=== PATIENT | male | born 1980 | race Caucasian/White ===

== ENCOUNTER 2020-05-10 19:45 | Emergency (ER) | payer BC, SELFPAY ==
[2020-05-10 19:52] VITALS: BP 165/93; PULSE 110; RESP 15; TEMP 38; O2SAT 100
--- NOTE | 2020-05-10 20:05 | ED.SKABFB ---
HPI - Skin/Abscess/Foreign Bdy General Chief complaint: Skin/Abscess/Foreign Body Stated complaint: abcess on back, fever Time Seen by Provider: 05/10/20 19:53 Source: patient Mode of arrival: ambulatory Limitations: no limitations History of Present Illness HPI narrative: This is a 39 year old male that presents to the ER for abscess on the left upper back present for the last 2 weeks. Reports he has been seen by his primary for this and had it drained. Reports he has been on Bactrim for this. Reports today he spiked a fever which concerned him and prompted him to be seen. Denies cough, congestion, abdominal pain, vomiting, or dysuria. Related Data Home Medications Medication Instructions Recorded Confirmed levocetirizine 5 mg tablet 5 mg PO DAILY 10/18/19 famotidine 20 mg tablet 20 mg PO DAILY 04/28/20 sulfamethoxazole-trimethoprim 05/10/20 Allergies Allergy/AdvReac Type Severity Reaction Status Date / Time No Known Allergies Allergy Unverified 05/10/20 19:57 Review of Systems Review of Systems: Narrative: CONSTITUTIONAL: Reports fever ENT: Denies rhinorrhea, congestion, sore throat RESPIRATORY: Denies cough GASTROINTESTINAL: Denies abdominal pain, nausea, vomiting GENITOURINARY: Denies dysuria or hematuria. SKIN: Reports abscess All systems reviewed & are unremarkable except as noted in HPI and below PMFSH Past Medical History Medical History (Updated 05/10/20 @ 21:48 by Joana Castañeda PA-C) Elevated blood pressure reading Sebaceous cyst Social History Social History Smoking status: Never smoker Second hand tobacco smoke exposure: No Alcohol intake: never Substance use: never Substance use type: does not use Gender identity (if verbalized by the patient): Male Exam Narrative: Exam Narrative: GENERAL: Well-appearing, well-nourished, and in no acute distress. HEAD: Normocephalic, atraumatic. EYES: EOMI. CHEST: Clear to auscultation. No respiratory distress. No wheezes rales or rhonchi HEART: Regular rate and rhythm. No murmur heard. Normal peripheral pulses. BACK: Left upper back with 3cm cystic lesion with mild surrounding redness, small amount of bloody drainage EXTREMITIES: Normal range of motion. No edema. SKIN: Warm, dry, no rash. NEURO: No focal deficits. Alert and oriented x3. PSYCH: Normal mood and affect Course Vital Signs Vital signs: Vital Signs Temperature 100.4 F H 05/10/20 19:52 Pulse Rate 110 H 05/10/20 19:52 Respiratory Rate 15 05/10/20 19:52 Blood Pressure 165/93 H 05/10/20 19:52 Pulse Oximetry 100 05/10/20 19:52 Temperature 100.3 F H 05/10/20 21:14 Pulse Rate 93 05/10/20 21:14 Respiratory Rate 15 05/10/20 21:14 Blood Pressure 134/85 05/10/20 21:14 Pulse Oximetry 98 05/10/20 21:14 Procedures Abscess I/D back: Date of Incision: 05/10/20 Time of Incision: 21:49 Local Anesthetic: lidocaine 1% and with epi Amount of anesthesia used (mL): 3 Technique: incised with #11 blade Packing used?: iodoform I&D Results: Blood and Other (Sebaceous material) MDM - Skin/Abscess/Foreign Bdy MDM Narrative Medical decision making narrative: Patient presents to the ER for cyst on the left upper back that is inflamed. Was drained by PCP 2 weeks ago. Has been on Bactrim since with some improvement. Patient spiked a fever today which prompted him to be seen. Patient with mild temperature of 100.4. He had not taken any antipyretics prior to arrival. Was given Tylenol and ibuprofen in the ED. CBC is without leukocytosis. ESR and CRP are normal. I did incise and drain cyst again. Wound was sent for culture. Patient was instructed to continue his antibiotics and follow-up with his primary on Tuesday. Spoke with on-call primary about work-up. Patient is stable and felt appropriate for further outpatient evaluation. He was given warnings to retur
[2020-05-10 20:22] LABS: Basophils Percent Auto 0.7 % (0.2-1.2); Eosinophils Absolute Auto 0.2 K/mm3 (0-0.3); Eosinophils Percent Auto 3.8 % (0-4.4); Hematocrit 49.4 % (42.0-52.0); Hemoglobin 16.5 g/dL (14.0-18.0); Immature Granulocyte Absolute 0.02 K/mm3 (0.00-0.031); Immature Granulocyte Percent A 0.4 % (0-0.5); Lymphocytes Percent Auto 18.2 % (18.3-44.2); Mean Corpuscular HGB Conc 33.4 g/dl (32-36); Mean Corpuscular Hemoglobin 29.2 pg (26-34); Mean Corpuscular Volume 87.3 fl (80-100); Mean Platelet Volume 11.3 fl (7.4-10.4); Monocytes Absolute Auto 0.6 K/mm3 (0.1-0.6); Monocytes Percent Auto 10.5 % (2.6-8.5); Neutrophils Absolute Auto 3.7 K/mm3 (1.3-6.7); Neutrophils Percent Auto 66.4 % (45.5-73.1); Platelet Count Result 170 k/mm3 (150-375); Red Blood Count 5.66 M/mm3 (4.6-6.20); Red Cell Distribution Width 12.6 % (11.5-14.5); White Blood Count 5.5 K/mm3 (4.5-10.0)
[2020-05-10] MEDS: ACETAMINOPHEN 500 MG TABLET 1000 MG PO (20:24)
[2020-05-10 20:34] LABS: Blood Urea Nitrogen 11 mg/dL (9-20); CRP 1.7 mg/dL (<1.0); Calcium 9.6 mg/dL (8.4-10.2); Carbon Dioxide 28 mmol/L (22-30); Chloride 100 mmol/L (98-107); Estimated CRCL calculation 111 ml/min; Estimated Glomerular Filt Rate > 60; Glucose 104 mg/dL (75-110); Potassium 4.3 mmol/L (3.4-5.0); Sodium 137 mmol/L (137-145)
[2020-05-10 20:54] VITALS: TEMP 37.9
[2020-05-10 21:12] LABS: Erythrocyte Sedimentation Rate 7 mm/hr (0-20)
[2020-05-10 21:14] VITALS: BP 134/85; PULSE 93; RESP 15; TEMP 37.9; O2SAT 98
[2020-05-10] MEDS: IBUPROFEN 600 MG TABLET PO (21:25)
[2020-05-10 21:55] VITALS: TEMP 37.9
[2020-05-10 22:00] VITALS: BP 121/74; PULSE 100; RESP 19; TEMP 37.9; O2SAT 97
== END 2020-05-10 22:00 | disposition home or self-care (01) ==
PROVIDERS: Physician Assistant; Emergency Provider Emergency Medicine; PCP Family Medicine
DX: L03.312 Cellulitis of back [any part except buttock and flank] (principal); L72.3 Sebaceous cyst
CPT/HCPCS: 10061; 36415; 80048; 85025; 85652; 86140; 87070; 87205; 99283; A9270

== ENCOUNTER 2020-12-02 17:01 | Outpatient (NON) | payer BC, SELFPAY | END 2020-12-02 17:02 | LOC: HOME HLTH 17:02 | PROVIDERS: Family Provider Family Medicine; PCP Family Medicine; Visit Provider Nurse Practitioner | DX: L02.91 Cutaneous abscess, unspecified (principal) | CPT/HCPCS: 87070; 87075; 87076; 87205 ==

== ENCOUNTER 2023-03-21 12:13 | Outpatient (NON) | payer OTHER, SELFPAY | END 2023-03-21 12:14 | disposition home or self-care (01) | PROVIDERS: PCP Family Medicine; Visit Provider Nurse Practitioner | DX: D22.5 Melanocytic nevi of trunk (principal) | CPT/HCPCS: 88305 ==

== ENCOUNTER 2023-07-18 12:23 | Outpatient (NON) | payer OTHER, SELFPAY | END 2023-07-18 12:24 | disposition home or self-care (01) | LOC: ANHLAB 07-20 12:25 | PROVIDERS: PCP Family Medicine; Visit Provider Nurse Practitioner | DX: L72.0 Epidermal cyst (principal); L70.0 Acne vulgaris | CPT/HCPCS: 88304 ==

== ENCOUNTER 2023-11-30 14:22 | Emergency (ER) | payer OTHER, SELFPAY ==
--- NOTE | ~2023-11-30 | XR_ITS ---
EXAMINATION: XR foot RT min 3V DATE: 11/30/2023 15:20 INDICATION: Right foot injury. TECHNIQUE: 4 views of right foot were obtained. COMPARISON: None. FINDINGS: Bone alignment is normal. No fracture. There is mild osteoarthritis of first metatarsophala ngeal joint and some of the interphalangeal joints. There are enthesophytes at the posterior and plan tar aspects of calcaneal tuberosity. IMPRESSION: 1. Mild polyarticular osteoarthritis. Reviewed, dictated and finalized at location E. D[facility]GER
--- NOTE | 2023-11-30 14:38 | ED.LOWEXIN ---
HPI - Extremity Injury (Lower) General Chief Complaint: Extremity Injury, Lower Stated Complaint: rt lower extremity injury Time Seen by Provider: 11/30/23 15:00 Source: patient and RN notes reviewed Mode of arrival: ambulatory Limitations: no limitations History of Present Illness HPI Narrative: 43-year-old male presents with concern for injury to the right lower extremity. Reports 1 week ago he hit his 5th right toe door jam. He reports he had pain. Reports he mostly has pain when he is walking on a. Reports he is concerned because the bruising seems to have gotten worse. He denies decreased sensation, strength, range of motion in the foot or digit. MD complaint: foot injury Related Data Allergies Allergy/AdvReac Type Severity Reaction Status Date / Time No Known Allergies Allergy Verified 11/30/23 14:49 Review of Systems Review of Systems: CONSTITUTIONAL: Denies malaise, chills, sweats, or fever. SKIN: Denies rash or itching, open skin, laceration, abrasion, redness, warmth, swelling. MUSCULOSKELETAL: Reports pain and bruising to the 5th digit of the right foot and surrounding the digit NEUROLOGIC: Denies numbness, weakness All systems reviewed & are unremarkable except as noted in HPI and below PMFSH Past Medical History Medical History (Updated 11/30/23 @ 15:32 by Estefani Baires NP) Elevated blood pressure reading Hypertension Sebaceous cyst Surgical History Surgical History History of eye surgery Family History Family History Mother Patient's mother is in good health Father Patient's father is in good health Sibling Patient's sister is in good health Other Cerebrovascular accident Hypertension Social History Social History Smoking status: Never smoker Second hand tobacco smoke exposure: No Alcohol intake: never Alcohol use details: socially Substance use: never Substance use type: does not use Living arrangements: with family Occupation/Education: occupation Gender identity (if verbalized by the patient): Male Spiritual care concerns: No Comments At time of signature, agree with nursing past medical, surgical, social and family history. There is no relevant family history pertinent to the presenting complaint Exam Narrative: GENERAL: Well-appearing, well-nourished, and in no acute distress. HEAD: Normocephalic, atraumatic. EYES: PERRLA, conjunctivae clear NECK: Supple. CHEST: Speaks in full sentences. No respiratory distress. HEART: Regular rate and rhythm. Normal and equal peripheral pulses. EXTREMITIES: Right foot in all digits have grossly normal strength and sensation, grossly normal range of motion. No edema. Ecchymosis noted to the base of the 4th and 5th digits. Normal sensation with sensitivity to light touch and pain. Fifth digit tenderness. No open wounds, no skin tenting, no devitalized tissue or atrophy, no trophic changes, no obvious deformity, alignment normal, nearby joints and structures intact. Distal pulses palpable and equal bilaterally, skin warm, dry, pink. Capillary refill less than 3 seconds. SKIN: Warm, dry, no rash. NEURO: Alert and oriented x3. PSYCH: Normal mood and affect Course Course Emergency Course: Patient is aware of diagnosis, understands and agrees to treatment plan. Anticipatory guidance given. Patient agrees to follow-up as directed and is aware of reasons to seek care at the emergency department. Portions of this record may have been created with voice recognition software Level of Care: Express Care Visit Vital Signs Vital signs: Reviewed. MDM - Extremity Injury (Lower) MDM Narrative Medical decision making narrative: Patients injury and pain is consistent with musculoskeletal etiology. No signs of neurological or vascular compromi
[2023-11-30 14:49] VITALS: BP 146/95; PULSE 93; RESP 16; TEMP 37.2; O2SAT 97
== END 2023-11-30 15:35 | disposition home or self-care (01) ==
PROVIDERS: Emergency Provider Nurse Practitioner; PCP Family Medicine
DX: S90.31XA Contusion of right foot, initial encounter (principal); W22.09XA Striking against other stationary object, initial encounter; I10 Essential (primary) hypertension
CPT/HCPCS: 73630; 99213; G0463